=== PATIENT | male | born 1960 | race Caucasian/White ===

== ENCOUNTER 2016-10-31 10:56 | Day surgery (SDC) | payer OTHER ==
[~2016-10-31] VITALS: Ht 160 cm; Wt 73.0 kg
[2016-10-31] VITALS (8 sets, daily range): BP systolic 95–136; BP diastolic 61–79; PULSE 54–76; RESP 10–36; Ht 160 cm; Wt 73.0 kg
[~2016-10-31 10:56] MED LIST: CEFAZOLIN 1 GM INJ ONE
[2016-10-31 12:03] LABS: ADD SCAN DIFF NO
[2016-10-31 12:09] LABS: BASOPHIL # 0.1 10^3/ul (0.0-0.1); BASOPHILS % 1.3 % (0.0-2.0); EOSINOPHILS # 0.1 10^3/ul (0.0-0.5); EOSINOPHILS % 2.2 % (0.0-7.0); HEMATOCRIT 44.5 % (42.0-52.0); LYMPHOCYTES # 2.9 10^3/ul (0.8-2.9); LYMPHOCYTES % 52.8 % (15.0-51.0); MEAN CORPUSCULAR HEMOGLOBIN 31.3 pg (29.0-33.0); MEAN CORPUSCULAR HGB CONC 33.7 g/dl (32.0-37.0); MEAN CORPUSCULAR VOLUME 92.9 fl (82.0-101.0); MEAN PLATELET VOLUME 9.6 fl (7.4-10.4); MONOCYTE # 0.3 10^3/ul (0.3-0.9); MONOCYTES % 5.4 % (0.0-11.0); NEUTROPHIL # 2.1 10^3/ul (1.6-7.5); NEUTROPHILS % 37.9 % (39.0-77.0); PLATELET COUNT 206 10^3/UL (140-415); RED BLOOD COUNT 4.79 10^6/ul (4.70-6.10); RED CELL DISTRIBUTION WIDTH 12.8 % (11.5-14.5); WHITE BLOOD COUNT 5.4 10^3/ul (4.8-10.8)
[2016-10-31] MEDS ORDERED: MULTI PO (12:11)
[2016-10-31] MEDS ORDERED: OMEG1CAP30 PO (12:11)
--- NOTE | 2016-10-31 12:17 | RADRPT ---
PROCEDURE: Chest Radiograph. CLINICAL INDICATION: Preop for mass excision. TECHNIQUE: Single frontal chest radiograph. COMPARISON: None available FINDINGS: The cardiomediastinal silhouette is within normal limits. No infiltrate or effusion is seen. Th e bones are intact. IMPRESSION: 1. Unremarkable chest radiograph. RPTAT: KK .Quincy Ravi MD, MD Date Time Electronically viewed and signed by .Quincy Ravi MD, on 10/31/2016 12:16 .B/
[2016-10-31 12:34] LABS: POTASSIUM 3.9 mmol/L (3.5-5.1)
[2016-10-31 12:35] LABS: CALCIUM 9.1 mg/dl (8.4-10.2); CREATININE 0.77 mg/dl (0.61-1.24)
[2016-10-31 12:36] LABS: INR 0.94; PARTIAL THROMBOPLASTIN TIME 28.1 Sec (25.0-35.0); PROTIME 12.6 Sec (12.2-14.2)
[2016-10-31] MEDS ORDERED: BUPIVACAINE 0.25% (MPF) 30 ML INJ ONE (13:37)
[2016-10-31] MEDS ORDERED: LIDOCAINE 1%/EPI 30 ML INJ ONE (13:46)
[2016-10-31] MEDS ORDERED: PROCHLORPERAZINE 10 MG INJ IV PRN (14:00)
[2016-10-31] MEDS ORDERED: OXYCODONE/ACETAMINOPHEN (5/325) TAB PO PRN (14:00)
[2016-10-31] MEDS ORDERED: DIPHENHYDRAMINE 50 MG INJ IV PRN (14:00)
[2016-10-31] MEDS ORDERED: FENTAnyl 50 MCG/ML VIAL IV PRN (14:00)
[2016-10-31] MEDS ORDERED: MEPERIDINE 25 MG INJ IV PRN (14:00)
[2016-10-31] MEDS ORDERED: HYDROmorphONE (0.2 MG/ML) 10ML SYG IV PRN (14:00)
[2016-10-31] MEDS ORDERED: ONDANSETRON 4 MG INJ IV PRN ×2 (14:00→15:00)
[2016-10-31] MEDS ORDERED: MIDAZOLAM 1 MG/ML 2 ML INJ ONE (14:05)
[2016-10-31] MEDS ORDERED: LIDOCAINE 2% (SDV) 5 ML INJ ONE (14:05)
[2016-10-31] MEDS ORDERED: PROPOFOL 20 ML ONE (14:05)
[2016-10-31] MEDS ORDERED: FENTAnyl 50 MCG/ML VIAL ONE (14:05)
[2016-10-31] MEDS ORDERED: BUPIVACAINE 0.25% (STERILE-PAK) 30 ML INJ INJ ONE (14:08)
[2016-10-31] MEDS ORDERED: LIDOCAINE 1%/EPI 30 ML INJ INJ ONE (14:08)
[2016-10-31] MEDS ORDERED: ONDANSETRON 4 MG INJ ONE (14:29)
--- NOTE | 2016-10-31 14:41 | OPR ---
Date/Time of Note Date/Time of Note DATE: 10/31/16 TIME: 14:36 Operative Report Procedure Date: Oct 31, 2016 Preoperative Diagnosis Soft tissue mass of the right chest wall Postoperative Diagnosis Soft tissue mass of the right chest wall Operation Performed Excision soft tissue mass right chest wall 2 cm x 2.5 cm Surgeon: LAMBERTO BHAGAT MD Anesthesia: MAC Anesthesiologist: JOSE MANUEL BROWER MD Estimated Blood Loss: minimal Specimens Chest wall mass Complications: None Pt Condition Post Procedure: stable Disposition: PACU Indications Patient is a 56-year-old male who presented to the office complaining of a mass of the soft tissues of the right chest wall. This had recently been enlarging and causing increasing pain. He was therefore scheduled for excision for symptom relief and definitive pathological diagnosis. All risks and benefits of the procedure including, but not limited to: Wound infection, excessive bleeding, postoperative seroma/hematoma formation, mass recurrence etc. were all explained to the patient in full detail. He fully understood and agreed to proceed with the procedure. Informed consent was obtained. Operative\Procedure Findings Soft tissue mass of the right chest wall consistent with lipoma. 2 cm x 2.5 cm. Procedure Description The patient was brought to the operating room and placed supine on the operating table. Bilateral sequential compression devices were placed on both lower extremities. A dose of broad-spectrum perioperative intravenous antibiotics was given. The site of the right chest wall mass was preoperatively marked and confirmed the patient in the holding area. The right chest was then prepped and draped in standard surgical fashion. After performance of the surgical timeout, a 3 cm incision was made over the right chest wall mass using a 15 blade scalpel after anesthetizing the skin with 1% lidocaine with epinephrine local anesthesia. Incision was taken through the skin and dermis into the subcutaneous tissues using sharp dissection. The lipomatous mass was identified. It was dissected free of surrounding tissues and transected at its base and passed off the field as specimen. It measured approximately 2 cm x 2.5 cm Hemostasis was then inspected for and noted to be total. The wound cavity was then irrigated with warm normal saline and the irrigant returned clear. Further local anesthesia was applied around skin of the incision site. The skin was then reapproximated using 4-0 Monocryl suture in a subcuticular fashion. Incision was cleaned and Dermabond was applied. The patient was awoken from anesthesia and transported to the recovery room in stable condition. All counts were correct at the end of the case 2. LAMBERTO BHAGAT MD Oct 31, 2016 14:41
[2016-10-31] MEDS ORDERED: IBUPROFEN 600 MG TAB PO PRN (15:00)
[2016-10-31] MEDS ORDERED: KETOROLAC 30 MG INJ IV PRN (15:00)
--- NOTE | 2016-11-02 08:16 | RADRPT ---
Vent Rate: 55 bpm RR Interval: 0 msec AK Interval: 186 msec QRS Duration: 104 msec QT Interval: 422 msec QTC Interval: 403 msec P-R-T [place]: 38 - 47 - 45 degrees Sinus bradycardia Incomplete right bundle branch block Borderline ECG Electronically Signed By: Alex Velarde [id number]
== END 2016-10-31 15:50 | disposition home or self-care (01) ==
LOC: SDS 10:56 → EDBD 17:00
PROVIDERS: ATTEND Surgery
DX: R22.2 Localized swelling, mass and lump, trunk (principal); D23.5 Other benign neoplasm of skin of trunk; E78.5 Hyperlipidemia, unspecified
CPT/HCPCS: 11406; 71010; 80048; 85025; 85610; 85730; 88305; 93005; J0690; J2250; J2405; J3010; Z7512; Z7610